=== PATIENT | female | born 1950 | race Caucasian/White ===

== ENCOUNTER 2017-12-19 09:57 | Outpatient (CLI) | payer OTHER ==
--- NOTE | 2017-12-19 13:07 | MRI ---
MRI OF LUMBAR SPINE: Date: 12-19-17 Comparison: None. History: Fall in June, back pain and bilateral leg pain. Technique: Multiplanar, multisequence MRI images were obtained of the lumbar spine without contrast. FINDINGS: The sagittal STIR imaging demonstrates no focal area of osseous marrow edema. There is no anterolisthesis or retrolisthesis noted within the lumbar spine. Assuming five lumbar type vertebral bodies, the conus medullaris terminates at the L1 level. T12-L1: Intervertebral disc height and signal intensity appears within normal limits with no signific ant central canal or neural foraminal stenosis. L1-2: There is an annular tear in the right paracentral region with associated small focal disc protr usion. This causes no significant central canal or neural foraminal stenosis. Disc material abuts but does not displace a few of the ventral nerve roots of the cauda equina at this level. L2-3: There is mild bilateral facet hypertrophy and minimal disc bulge with no associated central or neural foraminal stenosis. L3-4: Bilateral facet hypertrophy. No significant central canal or neural foraminal stenosis. Mild di sc space narrowing and disc desiccation. L4-5: Mild bilateral facet hypertrophy. Disc space narrowing, disc desiccation and mild disc bulge pr esent. No significant central canal or neural foraminal stenosis. L5-S1: There is disc space narrowing and disc desiccation with mild disc bulge. There is bilateral fa cet hypertrophy. Mild left neural foraminal stenosis. No central canal or right neural foraminal sten osis. Incidental note is made of a T2 hyperintense 1.9 cm lesion in the right hemipelvis which appears to b e associated with a mildly enlarged right ovary, the ovary measuring in the 4.5 cm range. Pelvic ultr asound is advised for further assessment. Imaged retroperitoneal structures appear grossly unremarkable. IMPRESSION: 1. Degenerative changes within the lumbar spine, the most significant finding being an annular tear i n the right paracentral region with an associated small disc protrusion. 2. Round T2 hyperintensity within the right hemipelvis suggesting an ovarian lesion. Recommend pelvic ultrasound. Code T POS: [facility]
== END 2017-12-19 09:58 | disposition home or self-care (01) ==
LOC: MRI 09:57
PROVIDERS: ATTEND Physical Medicine & Rehabilitation
DX: M54.5 Low back pain (principal); M79.606 Pain in leg, unspecified; R29.898 Other symptoms and signs involving the musculoskeletal system; M51.26 Other intervertebral disc displacement, lumbar region; M47.896 Other spondylosis, lumbar region; R93.5 Abnormal findings on diagnostic imaging of other abdominal regions, including retroperitoneum
CPT/HCPCS: 72148